=== PATIENT | male | born 2000 | race Two or more races ===

== ENCOUNTER 2022-12-25 17:59 | Emergency (ER) | payer OTHER ==
--- NOTE | 2022-12-25 19:13 | ED ---
Psych HPI - General Source: patient Mode of arrival: ambulatory - History of Present Illness MD Complaint: suicidal ideation <Jorden Schmid - Last Filed: 12/25/22 22:16> - History of Present Illness MD Complaint: suicidal ideation, feels depressed, altered mental status -: days(s) Associated Psychiatric Symptoms: depression, suicidal ideation, racing thoughts Quality: getting worse Worsens With: none Associated Symptoms: denies other symptoms Treatments Prior to Arrival: placed on mental health hold If Self Harm: admits thoughts of self harm <Phillip Shine - Last Filed: 12/29/22 20:50> - General Chief Complaint: Psychiatric Symptoms Stated Complaint: Mental Health,Petition Time Seen by Provider: 12/25/22 18:12 - History of Present Illness Initial Comments: 22-year-old male here in petition was significantly tatum who was brought in because having suicidal thoughts of shooting himself. Per his mother's petition he is suffering from psychosis he has a history of post medic stress disorder. Per his mother he wanted her to get his gun and shoot him. A petition was filled out by the patient's mother. (Jorden Schmid) 22-year-old male to the emergency department for evaluation of psychiatric illness and psychosis, acutely suicidal with plan to shoot himself (Phillip Shine) - Related Data Allergies Allergy/AdvReac Type Severity Reaction Status Date / Time No Known Allergies Allergy Verified 12/26/22 12:30 Review of Systems ROS Other: All systems not noted in ROS Statement are negative. <Jorden Schmid - Last Filed: 12/25/22 22:16> ROS Other: All systems not noted in ROS Statement are negative. <Phillip Shine - Last Filed: 12/29/22 20:50> ROS Statement: Those systems with pertinent positive or pertinent negative responses have been documented in the HPI. Past Medical History Past Medical History: No Reported History History of Any Multi-Drug Resistant Organisms: None Reported Past Surgical History: No Surgical Hx Reported Past Psychological History: Anxiety, Depression, PTSD Smoking Status: Current every day smoker Past Alcohol Use History: None Reported Past Drug Use History: None Reported, Marijuana <Jorden Schmid - Last Filed: 12/25/22 22:16> General Exam Limitations: no limitations General appearance: alert, in no apparent distress Head exam: Present: atraumatic, normocephalic, normal inspection Eye exam: Present: normal appearance, PERRL, EOMI. Absent: scleral icterus, conjunctival injection, periorbital swelling ENT exam: Present: normal exam, mucous membranes moist Neck exam: Present: normal inspection. Absent: tenderness, meningismus, lymphadenopathy Respiratory exam: Present: normal lung sounds bilaterally. Absent: respiratory distress, wheezes, rales, rhonchi, stridor Cardiovascular Exam: Present: regular rate, normal rhythm, normal heart sounds. Absent: systolic murmur, diastolic murmur, rubs, gallop, clicks GI/Abdominal exam: Present: soft, normal bowel sounds. Absent: distended, tenderness, guarding, rebound, rigid Extremities exam: Present: normal inspection, full ROM, normal capillary refill. Absent: tenderness, pedal edema, joint swelling, calf tenderness Back exam: Present: normal inspection Neurological exam: Present: alert, oriented X3, CN II-XII intact Psychiatric exam: Present: depressed, flat affect, suicidal ideation Skin exam: Present: warm, dry, intact, normal color. Absent: rash <Jorden Schmid - Last Filed: 12/25/22 22:16> General appearance: alert, in no apparent distress Head exam: Present: atraumatic, normocephalic, normal inspection Eye exam: Present: normal appearance, PERRL, EOMI. Absent: scleral icterus, conjunctival injection, periorbital swelling ENT exam: Present: normal exam, mucous membranes moist Neck exam: Present: normal inspection. Absent: tenderness, meningismus, lymphadenopathy Respiratory exam: Present: normal lung sounds bilaterally. Absent: respiratory distress, wheezes, rales, rhonchi, stridor Cardiovascular Exam: Present: regular rate, normal rhythm, normal heart sounds. Absent: systolic murmur, diastolic murmur, rubs, gallop, clicks GI/Abdominal exam: Present: soft, normal bowel sounds. Absent: distended, tenderness, guarding, rebound, rigid Extremities exam: Present: normal inspection, full ROM, normal capillary refill. Absent: tenderness, pedal edema, joint swelling, calf tenderness Back exam: Present: normal inspection Neurological exam: Present: alert, oriented X3, CN II-XII intact Psychiatric exam: Present: normal affect, normal mood Skin exam: Present: warm, dry, intact, normal color. Absent: rash <Phillip Shine - Last Filed: 12/29/22 20:50> - General Exam Comments Initial Comments: This is a well-developed sec appearing male who is awake alert oriented 4 (Jorden Schmid) Course <Phillip Shine - Last Filed: 12/29/22 20:50> Vital Signs 12/25/22 12/26/22 12/26/22 18:04 10:05 22:26 Temperature 98 F 97.9 F 97.6 F Pulse Rate 98 58 L 71 Respiratory 18 18 18 Rate Blood Pressure 164/78 143/90 150/99 O2 Sat by Pulse 100 97 100 Oximetry 12/26/22 12/27/22 12/27/22 23:00 12:00 20:00 Temperature 98.4 F Pulse Rate 80 90 101 H Respiratory 18 18 20 Rate Blood Pressure 132/88 131/91 134/89 O2 Sat by Pulse 100 100 100 Oximetry 12/28/22 12/28/22 12/29/22 07:39 22:30 11:36 Temperature 98.4 F 98.9 F Pulse Rate 85 82 79 Respiratory 20 16 16 Rate Blood Pressure 136/96 151/79 153/98 O2 Sat by Pulse 100 100 100 Oximetry - Reevaluation(s) Reevaluation #1: Medical records reviewed (Phillip Shine) Reevaluation #2: Medical clear for psychiatric evaluation (Phillip Shine) Medical Decision Making <Jorden Schmid - Last Filed: 12/25/22 22:16> - Lab Data Result diagrams: 12/25/22 22:57 12/25/22 22:57 <Phillip Shine - Last Filed: 12/29/22 20:50> - Medical Decision Making Patient was evaluated by the EPS service and [facility] A clinical certification was filled out by me.Was pt. sent in by a medical professional or institution (, PA, [employer], urgent care, hospital, or alf...) When possible be specific @ -[No] Did you speak to anyone other than the patient for history (EMS, parent, family, police, friend...)? What history was obtained from this source @ -[No related review the petition that was submitted] Did you review nursing and triage notes (agree or disagree)? Why? @ -[I reviewed and agree with nursing and triage notes] Were old charts reviewed (outside hosp., previous admission, EMS record, old EKG, old radiological studies, urgent care reports/EKG's, alf records)? Report findings @ -[No old charts were reviewed] Differential Diagnosis (chest pain, altered mental status, abdominal pain women, abdominal pain men, vaginal bleeding, weakness, fever, dyspnea, syncope, headache, dizziness, GI bleed, back pain, seizure, CVA, palpatations, mental health, musculoskeletal)? @ -[Depression, suicidal ideation] EKG interpreted by me (3pts min.). @ -[Not done] X-rays interpreted by me (1pt min.). @ -[None done] CT interpreted by me (1pt min.). @ -[None done] U/S interpreted by me (1pt. min.). @ -[None done] What testing was considered but not performed or refused? (CT, X-rays, U/S, labs)? Why? @ -[None] What meds were considered but not given or refused? Why? @ -[None] Did you discuss the management of the patient with other professionals (prof chahal i.eYobany Dempsey, PA, [employer]ER, lab, RT, psych nurse, pediatric social worker, scale manager, teacher, strategic intelligence officer, case finisher)? Give summary @ -[Psychiatric service the [facility] Was smoking cessation discussed for >3mins.? @ -[No] Was critical care preformed (if so, how long)? @ -[No] Were there social determinants of health that impacted care today? How? (Homelessness, low income, unemployed, alcoholism, drug addiction, transportation, low edu. Level, literacy, decrease access to med. care, detention, rehab)? @ -[No] Was there de-escalation of care discussed even if they declined (Discuss DNR or withdrawal of care, Hospice)? DNR status @ -[No] What co-morbidities impacted this encounter? (DM, HTN, Smoking, COPD, CAD, Cancer, CVA, ARF, Chemo, Hep., AIDS, mental health diagnosis, sleep apnea, morbid obesity)? @ -[None] Was patient admitted / discharged? Hospital course, mention meds given and route, prescriptions, significant lab abnormalities, going to OR and other pertinent info. @ -[hospital course] Undiagnosed new problem with uncertain prognosis? @ -[No] Drug Therapy requiring intensive monitoring for toxicity (Heparin, Nitro, Insulin, Cardizem)? @ -[No] Were any procedures done? @ -[No] Diagnosis/symptom? @ -[default] Acute, or Chronic, or Acute on Chronic? @ -[default] Uncomplicated (without systemic symptoms) or Complicated (systemic symptoms)? @ -[default] Side effects of treatment? @ -[No] Exacerbation, Progression, or Severe Exacerbation? @ -[No] Poses a threat to life or bodily function? How? (Chest pain, [place], [place], pneumonia, PE, COPD, DKA, ARF, appy, cholecystitis, CVA, Diverticulitis, Homicidal, Suicidal, threat to staff... and all critical care pts) @ -[No] (Jorden Schmid) 22 male who be transferred for inpatient psychiatric evaluation and treatment at the [place] (Phillip Shine) - Lab Data Lab Results 12/25/22 12/25/22 12/25/22 Range/Units 20:26 20:27 22:57 WBC 7.3 (3.8-10.6) k/uL RBC 4.36 (4.30-5.90) m/uL Hgb 14.2 (13.0-17.5) gm/dL Hct 41.5 (39.0-53.0) % MCV 95.3 (80.0-100.0) fL MCH 32.7 (25.0-35.0) pg MCHC 34.3 (31.0-37.0) g/dL RDW 12.7 (11.5-15.5) % Plt Count 231 (150-450) k/uL MPV 8.5 Sodium (137-145) mmol/L Potassium (3.5-5.1) mmol/L Chloride (98-107) mmol/L Carbon Dioxide (22-30) mmol/L Anion Gap mmol/L BUN (9-20) mg/dL Creatinine (0.66-1.25) mg/dL Est GFR (CKD-EPI)AfAm (>60 ml/min/1.73 sqM) Est GFR (CKD-EPI)NonAf (>60 ml/min/1.73 sqM) Glucose (74-99) mg/dL Calcium (8.4-10.2) mg/dL Total Bilirubin (0.2-1.3) mg/dL AST (17-59) U/L ALT (4-49) U/L Alkaline Phosphatase (38-126) U/L Total Protein (6.3-8.2) g/dL Albumin (3.5-5.0) g/dL TSH (0.465-4.680) mIU/L Urine Color Light Yellow Urine Appearance Clear (Clear) Urine pH 6.5 (5.0-8.0) Ur Specific [place] 1.020 (1.001-1.035) Urine Protein Negative (Negative) Urine Glucose (UA) Negative (Negative) Urine Ketones Negative (Negative) Urine Blood Negative (Negative) Urine Nitrite Negative (Negative) Urine Bilirubin Negative (Negative) Urine Urobilinogen <2.0 (<2.0) mg/dL Ur Leukocyte Esterase Negative (Negative) Urine Opiates Screen Not Detected (NotDetected) Ur Oxycodone Screen Not Detected (NotDetected) Urine Methadone Screen Not Detected (NotDetected) Ur Propoxyphene Screen Not Detected (NotDetected) Ur Barbiturates Screen Not Detected (NotDetected) U Tricyclic Antidepress Not Detected (NotDetected) Ur Phencyclidine Scrn Not Detected (NotDetected) Ur Amphetamines Screen Not Detected (NotDetected) U Methamphetamines Scrn Not Detected (NotDetected) U Benzodiazepines Scrn Not Detected (NotDetected) Urine Cocaine Screen Not Detected (NotDetected) U Marijuana (THC) Screen Detected H (NotDetected) Serum Alcohol mg/dL Coronavirus (PCR) (Not Detectd) 12/25/22 12/25/22 12/26/22 Range/Units 22:57 22:57 00:07 WBC (3.8-10.6) k/uL RBC (4.30-5.90) m/uL Hgb (13.0-17.5) gm/dL Hct (39.0-53.0) % MCV (80.0-100.0) fL MCH (25.0-35.0) pg MCHC (31.0-37.0) g/dL RDW (11.5-15.5) % Plt Count (150-450) k/uL MPV Sodium 137 (137-145) mmol/L Potassium 4.3 (3.5-5.1) mmol/L Chloride 104 (98-107) mmol/L Carbon Dioxide 22 (22-30) mmol/L Anion Gap 11 mmol/L BUN 18 (9-20) mg/dL Creatinine 0.90 (0.66-1.25) mg/dL Est GFR (CKD-EPI)AfAm >90 (>60 ml/min/1.73 sqM) Est GFR (CKD-EPI)NonAf >90 (>60 ml/min/1.73 sqM) Glucose 91 (74-99) mg/dL Calcium 9.6 (8.4-10.2) mg/dL Total Bilirubin 0.4 (0.2-1.3) mg/dL AST 44 (17-59) U/L ALT 28 (4-49) U/L Alkaline Phosphatase 62 (38-126) U/L Total Protein 7.2 (6.3-8.2) g/dL Albumin 4.5 (3.5-5.0) g/dL TSH 0.910 (0.465-4.680) mIU/L Urine Color Urine Appearance (Clear) Urine pH (5.0-8.0) Ur Specific [place] (1.001-1.035) Urine Protein (Negative) Urine Glucose (UA) (Negative) Urine Ketones (Negative) Urine Blood (Negative) Urine Nitrite (Negative) Urine Bilirubin (Negative) Urine Urobilinogen (<2.0) mg/dL Ur Leukocyte Esterase (Negative) Urine Opiates Screen (NotDetected) Ur Oxycodone Screen (NotDetected) Urine Methadone Screen (NotDetected) Ur Propoxyphene Screen (NotDetected) Ur Barbiturates Screen (NotDetected) U Tricyclic Antidepress (NotDetected) Ur Phencyclidine Scrn (NotDetected) Ur Amphetamines Screen (NotDetected) U Methamphetamines Scrn (NotDetected) U Benzodiazepines Scrn (NotDetected) Urine Cocaine Screen (NotDetected) U Marijuana (THC) Screen (NotDetected) Serum Alcohol <10 mg/dL Coronavirus (PCR) Not Detected (Not Detectd) Disposition <Jorden Schmid - Last Filed: 12/25/22 22:16> Is patient prescribed a controlled substance at d/c from ED?: No <Phillip Shine - Last Filed: 12/29/22 20:50> Clinical Impression: Acute psychosis, Depression, Suicidal ideation, Psychosis Disposition: TRANSFER TO PSYCH HOSP/UNIT Condition: Fair Referrals: None,Stated [Primary Care Provider] - 1-2 days
[2022-12-25 22:27] LABS: Appearance,Urine Clear (Clear); Bilirubin,Urine Negative (Negative); Blood,Urine Negative (Negative); Color,Urine Light Yellow; Glucose,Urine (UA) Negative (Negative); Ketones,Urine Negative (Negative); Leukocyte Esterase,Urine Negative (Negative); Nitrite,Urine Negative (Negative); PH, Urine 6.5 (5.0-8.0); Protein,Urine Negative (Negative); Urobilinogen,Urine <2.0 mg/dL (<2.0)
[2022-12-25] MEDS ORDERED: HALOPERIDOL LACTATE 5 MG/ML 1 ML VIAL IM PRN (22:40)
[2022-12-25] MEDS ORDERED: haloperidoL 5 MG TAB PO PRN (22:42)
[2022-12-25] MEDS ORDERED: LORazepam 2 MG/ML INJ IM PRN (22:43)
[2022-12-25] MEDS: LORazepam 1 MG TAB PO PRN (23:00)
[2022-12-25 23:06] LABS: Amphetamine Screen,Urine Not Detected (NotDetected); Barbiturate Screen,Urine Not Detected (NotDetected); Benzodiazepines Screen,Urine Not Detected (NotDetected); Cocaine Screen,Urine Not Detected (NotDetected); Methadone Screen, Urine Not Detected (NotDetected); Opiate Screen,Urine Not Detected (NotDetected); Oxycodone Screen, Urine Not Detected (NotDetected); Phencyclidine Screen,Urine Not Detected (NotDetected); Tricyclic Antidepressant,Urine Not Detected (NotDetected); Urn Cannabinoid Scrn Detected (NotDetected)
[2022-12-25 23:49] LABS: AST 44 U/L (17-59); African American GFR (CKD) >90 (>60 ml/min/1.73 sqM); Albumin 4.5 g/dL (3.5-5.0); Alkaline Phosphatase 62 U/L (38-126); Blood Urea Nitrogen 18 mg/dL (9-20); Carbon Dioxide 22 mmol/L (22-30); Chloride 104 mmol/L (98-107); Glucose 91 mg/dL (74-99); Non-African American GFR(CKD) >90 (>60 ml/min/1.73 sqM); Total Bilirubin 0.4 mg/dL (0.2-1.3); Total Protein 7.2 g/dL (6.3-8.2)
[2022-12-25 23:50] LABS: ALT 28 U/L (4-49); Anion Gap 11 mmol/L; Calcium 9.6 mg/dL (8.4-10.2); Potassium 4.3 mmol/L (3.5-5.1); Sodium 137 mmol/L (137-145)
[2022-12-25 23:53] LABS: HCT 41.5 % (39.0-53.0); HGB 14.2 gm/dL (13.0-17.5); MCH 32.7 pg (25.0-35.0); MCHC 34.3 g/dL (31.0-37.0); MCV 95.3 fL (80.0-100.0); Mean Platelet Volume 8.5; Platelet Count 231 k/uL (150-450); RBC 4.36 m/uL (4.30-5.90); RDW 12.7 % (11.5-15.5); WBC 7.3 k/uL (3.8-10.6)
[2022-12-26 00:28] LABS: Alcohol <10 mg/dL
[2022-12-26] MEDS: LORazepam 1 MG TAB PO PRN (16:36)
[2022-12-26] MEDS ORDERED: NICOTINE GUM (POLACRILEX) 2 MG GUM BUCCAL STA (19:30)
[2022-12-27] MEDS ORDERED: NICOTINE GUM (POLACRILEX) 2 MG GUM BUCCAL STA ×2 (07:45→13:49)
[2022-12-27] MEDS: LORazepam 1 MG TAB PO PRN (14:43)
[2022-12-28] MEDS ORDERED: HALOPERIDOL LACTATE 5 MG/ML 1 ML VIAL IM PRN (07:06)
[2022-12-28] MEDS ORDERED: haloperidoL 5 MG TAB PO PRN (07:06)
[2022-12-28] MEDS ORDERED: LORazepam 2 MG/ML INJ IM PRN (07:06)
[2022-12-28] MEDS: LORazepam 1 MG TAB PO PRN ×2 (07:39→14:01)
[2022-12-28] MEDS ORDERED: NICOTINE GUM (POLACRILEX) 2 MG GUM BUCCAL STA (21:26)
[2022-12-29 00:48] VITALS: RESP 16
[2022-12-29] MEDS: LORazepam 1 MG TAB PO PRN ×2 (08:29→19:47)
[2022-12-29 11:45] VITALS: BP 153/98; PULSE 79; TEMP 98.9
[2022-12-29] MEDS ORDERED: NICOTINE GUM (POLACRILEX) 2 MG GUM BUCCAL STA (18:09)
[2022-12-30] MEDS ORDERED: NICOTINE GUM (POLACRILEX) 2 MG GUM BUCCAL STA (11:09)
== END 2022-12-30 11:40 ==
LOC: EC 17:59
DX: F32.A Depression, unspecified (principal); R45.851 Suicidal ideations; F23 Brief psychotic disorder; F17.200 Nicotine dependence, unspecified, uncomplicated; Z20.822 Contact with and (suspected) exposure to COVID-19
CPT/HCPCS: 99285; 82075; 36415; 80053; 84443; 85027; 81003; 80306; 87635; 96372 ×2; G0480; J2060; J1630; 80320